=== PATIENT | male | born 1965 | race Caucasian/White ===

== ENCOUNTER → 2016-05-23 | Outpatient (CLI) | payer BC ==
--- NOTE | 2016-05-23 18:12 | US ---
Venous Doppler Study of Right Lower Extremity Clinical Indications: Right ankle pain and swelling. Technique: High-frequency transducer was used for imaging and Doppler study of the deep veins of the leg from the upper calf to the groin. Pulsed Doppler and color Doppler were utilized, along with va rious maneuvers, to assess flow in the deep veins. Findings: The deep veins of the groin, thigh, knee, and upper calf are well displayed and are normal ly compressible. Doppler flow patterns are unremarkable. There is no evidence of deep venous thromb osis. There is normal compression of the greater saphenous vein without superficial thrombosis. The left common femoral vein is patent, competent, and compressible. Impression: No evidence of deep vein thrombosis in the right leg. Critical results relayed by Dr. Dennis Simental to Dr. Mariluz Tanner on May 23, 2016, at 1807 hours. I have also discussed these findings with the patient and his .
== END ==
LOC: FIMAGING 17:08
PROVIDERS: ATTEND Internal Medicine
DX: M25.571 Pain in right ankle and joints of right foot (principal); M79.89 Other specified soft tissue disorders

== ENCOUNTER 2018-05-23 07:48 | Emergency (ER) | payer BC ==
[2018-05-23 08:34] LABS: PLATELET COUNT 205 10^3/uL (150-400)
--- NOTE | 2018-05-23 09:37 | EDPHY ---
H & P Stated Complaint: felt hr skipping today while working out/palpitations/sob dizzy x 1 month Time Seen by Provider: 05/23/18 09:00 HPI/ROS: CHIEF COMPLAINT: Skipped heartbeats HISTORY OF PRESENT ILLNESS: 52-year-old male presents with a chief complaint of skipped heartbeats. Over the last month, he that intermittent palpitations. He describes this as a flip-flop in his chest, followed by a pause. The sensation is intermittent. This morning he was on his exercise machine, feeling very stressed because his daughter did not come home last night, when he had several intermittent palpitations. No associated chest pain or shortness of breath. Asymptomatic now. Cardiac risk factors negative. Nonsmoker; no family history; no hypertension, diabetes or hypercholesterolemia. REVIEW OF SYSTEMS: complete 10 point ROS reviewed and is negative except for the noted elements in the HPI - Personal History Current Tetanus Diphtheria and Acellular Pertussis (TDAP): Unsure - Medical/Surgical History Hx Asthma: No Hx Chronic Respiratory Disease: No Hx Diabetes: No Hx Cardiac Disease: No Hx Renal Disease: No Hx Cirrhosis: No Hx Alcoholism: No Hx HIV/AIDS: No Hx Splenectomy or Spleen Trauma: No Other PMH: hypothyroid, mitral valve prolapse - Social History Smoking Status: Never smoked Alcohol Use: Sober Drug Use: None Additional Social History: - Physical Exam Exam: General Appearance: Alert, pleasant Eyes: Pupils equal and round, no conjunctival pallor or injection ENT, Mouth: Mucous membranes moist Neck: Normal inspection Respiratory: Lungs are clear to auscultation Cardiovascular: Regular rate and rhythm, no murmur Gastrointestinal: Abdomen is soft and nontender Neurological: A&O, nonfocal, normal gait Skin: Warm and dry, no rash Extremities: Nontender, no pedal edema Psychiatric: Mood and affect normal Constitutional: Initial Vital Signs Temperature (C) 36.6 C 05/23/18 07:50 Heart Rate 72 05/23/18 07:50 Respiratory Rate 18 05/23/18 07:50 Blood Pressure 102/66 05/23/18 07:50 O2 Sat (%) 98 05/23/18 07:50 O2 Delivery Mode Room Air Allergies/Adverse Reactions: No Known Allergies Allergy (Unverified 05/23/18 07:49) Home Medications: Medication Instructions Recorded Propecia 05/23/18 Synthroid 05/23/18 Medical Decision Making - Diagnostics EKG Interpretation: EKG interpreted by me reveals normal sinus rhythm, rate 60, no ST or T segment changes. Interpretation: Normal EKG ED Course/Re-evaluation: This patient presents with intermittent palpitations. Stat EKG reveals no evidence of ischemia or dysrhythmia. chestnut tanner reveals normal sinus rhythm throughout. Likely PACs or PVCs. No evidence of significant dysrhythmia. Patient is safe and stable for discharge home. Will refer to PCP for outpatient Holter monitoring. Differential Diagnosis: Includes though not limited to SVT, atrial fibrillation, ventricular dysrhythmia. - Data Points Laboratory Results: Laboratory Results 05/23/18 08:15 05/23/18 08:15 05/23/18 05/23/18 05/23/18 08:57 08:15 08:15 WBC RBC Hgb Hct MCV MCH MCHC RDW Plt Count MPV Neut % (Auto) Lymph % (Auto) Carbon % (Auto) Eos % (Auto) Baso % (Auto) Nucleat RBC Rel Count Absolute Neuts (auto) Absolute Lymphs (auto) Absolute Monos (auto) Absolute Eos (auto) Absolute Basos (auto) Absolute Nucleated RBC Immature Gran % Immature Gran # D-Dimer 0.32 ug/mLFEU ug/mLFEU (0.00-0.50) Sodium 139 mEq/L mEq/L (135-145) Potassium 4.3 mEq/L mEq/L (3.5-5.2) Chloride 106 mEq/L mEq/L (97-110) Carbon Dioxide 27 mEq/l mEq/l (22-31) Anion Gap 6 mEq/L mEq/L (6-14) BUN 25 mg/dL H mg/dL (7-23) Creatinine 1.0 mg/dL mg/dL (0.7-1.3) Estimated GFR > 60 Glucose 83 mg/dL mg/dL (70-100) Calcium 9.6 mg/dL mg/dL (8.5-10.4) POC Troponin I 0.01 ng/mL ng/mL (0.00-0.08) NT-Pro-B Natriuret Pep 34 pg/mL pg/mL (0-125) TSH 5.960 uIU/mL H uIU/mL (0.465-4.680) 05/23/18 08:15 WBC 6.10 10^3/uL 10^3/uL (3.80-9.50) RBC 4.75 10^6/uL 10^6/uL (4.40-6.38) Hgb 15.1 g/dL g/dL (13.7-17.5) Hct 44.1 % % (40.0-51.0) MCV 92.8 fL fL (81.5-99.8) MCH 31.8 pg pg (27.9-34.1) MCHC 34.2 g/dL g/dL (32.4-36.7) RDW 12.6 % % (11.5-15.2) Plt Count 205 10^3/uL 10^3/uL (150-400) MPV 9.9 fL fL (8.7-11.7) Neut % (Auto) 64.0 % % (39.3-74.2) Lymph % (Auto) 24.9 % % (15.0-45.0) Carbon % (Auto) 8.4 % % (4.5-13.0) Eos % (Auto) 2.0 % % (0.6-7.6) Baso % (Auto) 0.5 % % (0.3-1.7) Nucleat RBC Rel Count 0.0 % % (0.0-0.2) Absolute Neuts (auto) 3.91 10^3/uL 10^3/uL (1.70-6.50) Absolute Lymphs (auto) 1.52 10^3/uL 10^3/uL (1.00-3.00) Absolute Monos (auto) 0.51 10^3/uL 10^3/uL (0.30-0.80) Absolute Eos (auto) 0.12 10^3/uL 10^3/uL (0.03-0.40) Absolute Basos (auto) 0.03 10^3/uL 10^3/uL (0.02-0.10) Absolute Nucleated RBC 0.00 10^3/uL 10^3/uL (0-0.01) Immature Gran % 0.2 % % (0.0-1.1) Immature Gran # 0.01 10^3/uL 10^3/uL (0.00-0.10) D-Dimer Sodium Potassium Chloride Carbon Dioxide Anion Gap BUN Creatinine Estimated GFR Glucose Calcium POC Troponin I NT-Pro-B Natriuret Pep TSH Point of Care Test Results: Chemistry 05/23/18 08:57 POC Troponin I 0.01 ng/mL ng/mL (0.00-0.08) Departure - Departure Disposition: Home, Routine, Self-Care Clinical Impression: Palpitations Condition: Good Instructions: Heart Palpitations (ED), Premature Ventricular Contractions (ED) Additional Instructions: Your heart monitor shows a normal heart rhythm. I suspect that you are having PVCs. For diagnosis, you should follow up with her primary care physician for outpatient cardiac monitoring. This test is called a Holter monitor. Referrals: Mitchell Umanzor MD [Primary Care Provider] - As per Instructions (Call to make an appointment. )
[2018-05-23 10:07] VITALS: BP 111/74
--- NOTE | 2018-05-23 14:46 | CPEKG ---
Test Reason : OPEN Blood Pressure : / mmHG Vent. Rate : 060 BPM Atrial Rate : 061 BPM P-R Int : 163 ms QRS Dur : 087 ms QT Int : 394 ms P-R-T Axes : 050 083 050 degrees QTc Int : 394 ms Sinus rhythm Confirmed by Neha Verde ([id number]) on 05/23/2018 2:45:31 PM Referred By: Confirmed By:Neha Verde
== END 2018-05-23 10:07 | disposition home or self-care (01) ==
DX: R00.2 Palpitations (principal); I34.1 Nonrheumatic mitral (valve) prolapse; E03.9 Hypothyroidism, unspecified
CPT/HCPCS: 84484-ER